=== PATIENT | male | born 1965 | race Caucasian/White ===

== ENCOUNTER 2016-08-20 07:44 | Day surgery (SDC) | payer BC ==
[2016-08-20] MEDS ORDERED: Sodium Chloride 0.9% 1,000 ML IV SCH (08:45)
[2016-08-20] MEDS ORDERED: Propofol 200 MG/20 ML SDV ONE (09:50)
[2016-08-20] MEDS ORDERED: fentaNYL 100 MCG/2 ML SDV ONE (09:50)
[2016-08-20] MEDS ORDERED: Midazolam 1 MG/ML 2 ML SDV ONE (09:51)
--- NOTE | 2016-08-20 11:10 | OR ---
DATE OF PROCEDURE: 08/20/2016 PROCEDURE: Colonoscopy. FINDINGS: 1. Sigmoid colon polyp, 5 mm, completely removed using cold biopsy forceps. 2. Diverticulosis, mild, mostly limited to sigmoid colon. COMPLICATIONS: None. [employer]: None. PREOPERATIVE DIAGNOSIS: Screening colonoscopy. POSTOPERATIVE DIAGNOSIS: Screening colonoscopy. RISKS: Risks, benefits, alternatives, and limitations including, but not limited to infection, bleeding, and perforation were explained to the patient, and he wished to proceed. PROCEDURE IN DETAIL: The patient was placed in left lateral decubitus position. A digital rectal exam was performed without abnormality. The scope was introduced and advanced atraumatically to the ileocecal valve. A photo was taken. The scope was brought back to the ascending, transverse, descending colon, and retroflexed. No old or new blood. No masses. The patient had a 5-mm polyp, approximately, in the sigmoid colon, which was completely removed using cold biopsy forceps. Diverticulosis would be described as mild and mostly limited to sigmoid colon. No other abnormalities were noted including on reflux. The patient tolerated the procedure well. Italo Nair MD /[id number]
[2016-08-20 11:21] VITALS: BP 126/83
== END 2016-08-20 11:25 | disposition home or self-care (01) ==
LOC: JP.SDS 07:44
PROVIDERS: ATTEND Surgery
PROC: 0DBN8ZX Excision of Sigmoid Colon, Via Natural or Artificial Opening Endoscopic, Diagnostic (ICD-10-PCS; principal; 2016-08-20)
DX: Z12.11 Encounter for screening for malignant neoplasm of colon (principal); K63.5 Polyp of colon; K57.30 Diverticulosis of large intestine without perforation or abscess without bleeding
CPT/HCPCS: 45380; J2250; J2704; J3010; J7040; 88305

== ENCOUNTER 2020-05-31 07:35 | Day surgery (SDC) | payer BC ==
[2020-05-31] MEDS ORDERED: Glycopyrrolate 0.2 MG/ML 2 ML SDV IVPUSH ONE (08:00)
[2020-05-31] MEDS ORDERED: Dextrose 5%-Lactated Ringers 1,000 ML IV SCH (08:00)
[2020-05-31] MEDS ORDERED: Propofol 200 MG/20 ML SDV ONE (08:01)
[2020-05-31] MEDS ORDERED: fentaNYL 100 MCG/2 ML SDV ONE (08:01)
[2020-05-31] MEDS ORDERED: Midazolam 1 MG/ML 2 ML SDV ONE (08:01)
[2020-05-31 12:13] VITALS: BP 125/86; PULSE 86
--- NOTE | 2020-06-12 17:35 | OR ---
DATE OF PROCEDURE: 05/31/2020 SURGEON: Michael Monson MD PREOPERATIVE DIAGNOSIS: History of gastroesophageal reflux disease. POSTOPERATIVE DIAGNOSES: 1. 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 2. Mild proximal duodenitis. OPERATIVE PROCEDURE: Esophagogastroduodenoscopy with: 1. Biopsies of esophagogastric junction for histologic evaluation. 2. Biopsies of antrum for CLOtest. ANESTHESIA: IV sedation. INDICATION FOR PROCEDURE: This is a 55-year-old male with several-year history of gastroesophageal reflux disease, presently he is on omeprazole 20 mg a day and does have good symptom control with that to screen for problems such as Torres esophagus. The patient is undergoing upper endoscopy. Potential risks including bleeding and perforation were discussed, and the patient wishes to proceed. DETAILS OF PROCEDURE: The patient was taken to the operating room and placed in a left lateral decubitus position. IV sedation was administered, after which the upper GI endoscope was passed orally through the length of the esophagus and into the stomach with retroflexion view of the fundus and thereafter through the pyloric channel and into the proximal duodenum. Findings included normal hypopharynx, larynx, upper esophageal sphincter, and esophageal body. At the EG junction, the patient had 3 to 4 cm hiatal hernia with some mildly inflamed distal esophageal mucosa. 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 There was, however, no plaquing or stricturing or gross evidence of neoplastic change. Within the stomach from the hiatal hernia, no significant abnormalities were noted. The proximal most duodenum had a small amount of patchy redness, but without ulcers or erosions. At this point, biopsies were obtained from the antrum and sent for CLOtest for H pylori. Multiple biopsies were then obtained from esophagogastric junction and sent for histologic evaluation. No bleeding from the biopsy sites was seen and the procedure then concluded. The patient had a fairly good symptom control on omeprazole 20 mg. They will keep him on that and we will contact the patient regarding the findings and appropriate follow up. 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 Michael Monson MD /[id number]
== END 2020-05-31 11:30 | disposition home or self-care (01) ==
LOC: JP.SDS 07:35
PROVIDERS: ATTEND Surgery
DX: K31.89 Other diseases of stomach and duodenum (principal); K29.80 Duodenitis without bleeding; K21.9 Gastro-esophageal reflux disease without esophagitis; K44.9 Diaphragmatic hernia without obstruction or gangrene; I48.91 Unspecified atrial fibrillation; Z79.899 Other long term (current) drug therapy
CPT/HCPCS: 87081; 88305; J2250; J2704; J3010; J3490; J7121

== ENCOUNTER 2021-07-31 18:10 | Emergency (ER) | payer BC, OTHER ==
[2021-07-31 18:32] VITALS: BP 124/77; PULSE 87
[2021-07-31] MEDS ORDERED: cefTRIAXone 2 GM, Lidocaine 1% 4.2 ML IM ONE ×2 (18:40)
== END 2021-07-31 19:15 | disposition home or self-care (01) ==
LOC: JP.ED 18:10
DX: S61.452A Open bite of left hand, initial encounter (principal); L08.9 Local infection of the skin and subcutaneous tissue, unspecified; I48.91 Unspecified atrial fibrillation; E78.00 Pure hypercholesterolemia, unspecified; I10 Essential (primary) hypertension; K21.9 Gastro-esophageal reflux disease without esophagitis; Z79.899 Other long term (current) drug therapy; W55.01XA Bitten by cat, initial encounter
CPT/HCPCS: 96372; 99283; J0696; 99281